=== PATIENT | male | born 1995 | race Two or more races ===

== ENCOUNTER 2017-04-05 12:27 | Emergency (ER) | payer OTHER ==
[~2017-04-05] VITALS: Ht 175.3 cm; Wt 95.9 kg
[2017-04-05] MEDS ORDERED: IBUP1TAB7 PO (13:03)
[2017-04-05] MEDS ORDERED: CIPR500T19 PO (13:03)
[2017-04-05] MEDS ORDERED: NORCO, ANEXSIA 5/325MG TABLET (HYDROcodone/ACETAMINOPHEN) PO ONE (15:30)
[2017-04-05] MEDS ORDERED: NORCOTAB PO (15:47)
[2017-04-05 16:23] VITALS: BP 157/82
== END 2017-04-05 16:25 | disposition home or self-care (01) ==
LOC: M ED 12:27
DX: N43.3 Hydrocele, unspecified (principal); N50.3 Cyst of epididymis; Z79.899 Other long term (current) drug therapy

== ENCOUNTER 2017-04-27 14:02 | Emergency (ER) | payer OTHER ==
[~2017-04-27] VITALS: Ht 175.3 cm; Wt 94.1 kg
[~2017-04-27 14:02] MED LIST: CIPR500T19 PO; IBUP1TAB7 PO; NORCOTAB PO
[2017-04-27] MEDS ORDERED: CELE1CAP7 (14:24)
--- NOTE | 2017-04-27 16:22 | REP ---
Scrotal ultrasound: Comparison is 2016. The testes are normal size. The right testis measures 4.59-0.4 x 3.3 cm. The left testis measures 4.9-0.5 x 2.7 cm. There are no testicular masses or cysts. With Doppler assessment there is vascular flow in both testes. The Doppler resistive index of the intraparenchymal arteries of the left testis is 0.61. Right testis 0.70. There is a 3.5 mm right epididymal head cyst. There is a 4.4 mm left epididymal head cyst. With color Doppler imaging there is no hyperemia in the testicular parenchyma or in the epididymal parenchyma on the right or the left. There are small bilateral hydroceles. Impression: No hyperemia to suggest epididymitis or orchitis. There are small bilateral hydroceles. There are small bilateral epididymal head cysts. There is vascular flow in both testes. Signed by Nadeem Sy MD 04/27/2017 04:14 P
[2017-04-27] MEDS ORDERED: PERCOCET 5MG/325MG TAB PO ONE (16:30)
[2017-04-27] MEDS ORDERED: PERC5TAB12 PO (17:01)
[2017-04-27 17:11] VITALS: BP 137/98
--- NOTE | 2017-04-28 06:43 | ED PDOC ---
Post-Departure Follow-Up ft yamel gonzalez faxed formalr eport of scrotal us for fu Michelle Barlow MD Apr 28, 2017 06:43
== END 2017-04-27 17:18 | disposition home or self-care (01) ==
LOC: M ED 14:02
DX: N43.3 Hydrocele, unspecified (principal)

== ENCOUNTER 2017-06-04 17:12 | Emergency (ER) | payer OTHER ==
[~2017-06-04] VITALS: Ht 175.3 cm; Wt 95.9 kg
[~2017-06-04 17:12] MED LIST changes: +CELE1CAP7; +PERC5TAB12 PO
[2017-06-04] MEDS ORDERED: NAPROXEN 250 MG TAB PO ONE (20:00)
[2017-06-04] MEDS ORDERED: ACETAMINOPHEN TAB 650MG DOSE (2X325MG) PO ONE (20:00)
--- NOTE | 2017-06-04 21:30 | REPUSA ---
Clinical history: Pain. Findings: Real-time ultrasound imaging of the testicles and scrotum was performed. The right testicle measures 4.4 x 2.3 x 3.3 cm. The left testicle measures 4.7 x 2.4 x 3.0 cm. There multiple cysts in the epididymis bilaterally. The testicles demonstrate normal echo texture and echogenicity. Normal co porsche Doppler flow and arterial waveforms are seen bilaterally. No fluid collections are seen. Impression: Unremarkable ultrasound examination of the testicles. Multiple bilateral epididymal cyst.
[2017-06-04] MEDS ORDERED: NEUR300C PO (21:32)
[2017-06-04 21:38] VITALS: BP 148/89
== END 2017-06-04 21:39 | disposition home or self-care (01) ==
LOC: M ED 17:12
DX: N50.3 Cyst of epididymis (principal); N43.3 Hydrocele, unspecified

== ENCOUNTER 2017-11-16 17:09 | Emergency (ER) | payer OTHER ==
[2017-11-16] MEDS: NS 1,000 ML IV (20:00)
[2017-11-16 20:15] LABS: BASO % 0.5 % (0.0-1.0); EOS # 0.1 10^3/uL (0.0-0.50); EOS % 1.7 % (0.0-3.0); HEMATOCRIT 49.1 % (42.0-52.0); HEMOGLOBIN 16.5 g/dl (13.5-17.5); IMMATURE GRANULOCYTE % 0.4 % (0-3.0); LYMPH # 2.3 10^3/uL (1.5-6.5); LYMPH % 27.3 % (24.0-44.0); MEAN CORPUSCULAR HEMOGLOBIN 29.2 pg (27.0-33.0); MEAN CORPUSCULAR HGB CONC 33.6 g/dl (32.0-36.5); MEAN CORPUSCULAR VOLUME 86.9 fl (80.0-96.0); MONO # 0.5 10^3/uL (0.0-0.8); MONO % 5.7 % (0.0-5.0); NEUTROPHILS # 5.5 10^3/uL (1.8-7.7); NEUTROPHILS % 64.4 % (36.0-66.0); PLATELET COUNT, AUTOMATED 273 10^3/uL (150-450); RED BLOOD COUNT 5.65 10^6/uL (4.30-6.10); RED CELL DISTRIBUTION WIDTH 12.4 % (11.5-14.5); WHITE BLOOD COUNT 8.4 10^3/uL (4.0-10.0)
[2017-11-16] MEDS: GASTROGRAFIN SOLUTION 30ML PO ×2 (20:15→20:31)
[2017-11-16 20:28] LABS: INR 0.89; PROTHROMBIN TIME 12.1 SECONDS (12.4-14.5)
[2017-11-16 20:30] LABS: SPECIFIC GRAVITY UR AUTO RFX 1.026 (1.002-1.035)
[2017-11-16 20:31] LABS: KETONE, URINE AUTO RFX NEGATIVE (NEGATIVE); LEUKOCYTE ESTERASE UR AUTO RFX NEGATIVE (NEGATIVE); MUCUS, URINE RFX SMALL (NEGATIVE); NITRITE, URINE AUTO RFX NEGATIVE (NEGATIVE); RBC, URINE AUTO RFX 0 /HPF (0-3); SQUAM EPITHELIAL CELL UR AURFX 0 /HPF (0-6); WBC, URINE AUTO RFX 1 /HPF (0-3)
[2017-11-16 21:33] LABS: ALBUMIN 4.5 GM/DL (3.2-5.2); ALBUMIN/GLOBULIN RATIO 1.25 (1.00-1.93); ALKALINE PHOSPHATASE 114 U/L (45-117); ALT/SGPT 72 U/L (12-78); AMYLASE 45 U/L (25-115); ANION GAP 8 MEQ/L (8-16); AST/SGOT 33 U/L (7-37); BILIRUBIN,DIRECT 0.1 MG/DL (0.0-0.2); BILIRUBIN,TOTAL 0.4 MG/DL (0.2-1.0); BLOOD UREA NITROGEN 15 MG/DL (7-18); CALCIUM LEVEL 9.4 MG/DL (8.5-10.1); CARBON DIOXIDE LEVEL 30 MEQ/L (21-32); CHLORIDE LEVEL 104 MEQ/L (98-107); GLOMERULAR FILTRATION RATE > 60.0 (>60); GLUCOSE, FASTING 105 MG/DL (70-100); LIPASE 106 U/L (73-393); POTASSIUM SERUM 4.8 MEQ/L (3.5-5.1); SODIUM LEVEL 142 MEQ/L (136-145); TOTAL PROTEIN 8.1 GM/DL (6.4-8.2)
[2017-11-16] MEDS ORDERED: ISOVUE-370 76% 100ML VIAL (Q9967) As Ordered (21:50)
== END 2017-11-16 23:08 | disposition home or self-care (01) ==
LOC: M ED 17:09
DX: K64.4 Residual hemorrhoidal skin tags (principal)
CPT/HCPCS: Q9963

== ENCOUNTER 2018-02-12 18:38 | Emergency (ER) | payer OTHER ==
[2018-02-12] MEDS: KETOROLAC 30 MG/ML VIAL (J1885) IV (19:20)
[2018-02-12 19:35] LABS: BASO % 0.6 % (0.0-1.0); EOS # 0.1 10^3/uL (0.0-0.50); EOS % 1.8 % (0.0-3.0); HEMATOCRIT 46.2 % (42.0-52.0); HEMOGLOBIN 15.8 g/dl (13.5-17.5); IMMATURE GRANULOCYTE % 0.1 % (0-3.0); LYMPH # 2.3 10^3/uL (1.5-6.5); LYMPH % 33.5 % (24.0-44.0); MEAN CORPUSCULAR HEMOGLOBIN 29.4 pg (27.0-33.0); MEAN CORPUSCULAR HGB CONC 34.2 g/dl (32.0-36.5); MONO # 0.4 10^3/uL (0.0-0.8); MONO % 6.1 % (0.0-5.0); NEUTROPHILS # 3.9 10^3/uL (1.8-7.7); NEUTROPHILS % 57.9 % (36.0-66.0); PLATELET COUNT, AUTOMATED 204 10^3/uL (150-450); RED BLOOD COUNT 5.37 10^6/uL (4.30-6.10); RED CELL DISTRIBUTION WIDTH 12.5 % (11.5-14.5); WHITE BLOOD COUNT 6.8 10^3/uL (4.0-10.0)
[2018-02-12 20:00] LABS: ALBUMIN/GLOBULIN RATIO 1.21 (1.00-1.93); ALKALINE PHOSPHATASE 102 U/L (45-117); ALT/SGPT 116 U/L (12-78); ANION GAP 10 MEQ/L (8-16); AST/SGOT 50 U/L (7-37); BILIRUBIN,DIRECT 0.2 MG/DL (0.0-0.2); BILIRUBIN,TOTAL 0.6 MG/DL (0.2-1.0); BLOOD UREA NITROGEN 17 MG/DL (7-18); CALCIUM LEVEL 8.9 MG/DL (8.5-10.1); CARBON DIOXIDE LEVEL 25 MEQ/L (21-32); CHLORIDE LEVEL 105 MEQ/L (98-107); CREATININE FOR GFR 0.96 MG/DL (0.70-1.30); GLOMERULAR FILTRATION RATE > 60.0 (>60); GLUCOSE, FASTING 127 MG/DL (70-100); LIPASE 86 U/L (73-393); SODIUM LEVEL 140 MEQ/L (136-145); TOTAL PROTEIN 7.3 GM/DL (6.4-8.2)
[2018-02-12] MEDS: NS 1,000 ML IV (20:10)
[2018-02-12] MEDS: MORPHINE 4 MG/ML 1ML VIAL/SYRINGE (J2270) IV (20:11)
[2018-02-12] MEDS: ONDANSETRON 4 MG TAB (S0181) PO (20:12)
[2018-02-12] MEDS: PERCOCET 5MG/325MG TAB PO (21:30)
[2018-02-12 21:33] LABS: KETONE, URINE AUTO RFX NEGATIVE (NEGATIVE); LEUKOCYTE ESTERASE UR AUTO RFX NEGATIVE (NEGATIVE); MUCUS, URINE RFX SMALL (NEGATIVE); NITRITE, URINE AUTO RFX NEGATIVE (NEGATIVE); RBC, URINE AUTO RFX TNTC /HPF (0-3); SPECIFIC GRAVITY UR AUTO RFX 1.026 (1.002-1.035); SQUAM EPITHELIAL CELL UR AURFX 1 /HPF (0-6); WBC, URINE AUTO RFX 8 /HPF (0-3)
[2018-02-19 00:06] LABS: CA Oxalate Dihy 17 % (.); Ca Ox Monohydrate 80 % (.)
== END 2018-02-12 21:54 | disposition home or self-care (01) ==
LOC: M ED 18:38
DX: N20.1 Calculus of ureter (principal); N13.39 Other hydronephrosis; N39.0 Urinary tract infection, site not specified; K75.9 Inflammatory liver disease, unspecified; R31.9 Hematuria, unspecified; N50.819 Testicular pain, unspecified; G89.29 Other chronic pain; N44.2 Benign cyst of testis; Z87.442 Personal history of urinary calculi
CPT/HCPCS: J2270